=== PATIENT | female | born 1940 | race Caucasian/White ===

== ENCOUNTER 2025-05-11 13:51 | Outpatient (CLI) | payer OTHER, SELFPAY ==
--- NOTE | 2025-05-11 14:00 | CRLHL7_ITS ---
For Patients: As a result of the 21st Century Cures Act, medical imaging exams and procedure reports are released immediately into your electronic medical record. You may view this report before your referring provider. If you have questions, please contact your health care provider. INDICATION: Kidney stone TECHNIQUE: CT abdomen and pelvis without contrast. COMPARISON: None. FINDINGS: Lower chest: Bibasilar scarring. Probable tree-in-bud nodularity with surrounding ground-glass in the left anterior lower lobe, incompletely imaged Liver: Normal in size and attenuation. No suspicious masses. Gallbladder and bile ducts: No stones or inflammation. No biliary dilatation. Pancreas: Unremarkable. No mass or inflammation. Spleen: Normal in size. No masses. Adrenal glands: Normal in size. No nodules. Kidneys: Normal in size. No hydronephrosis. The ureters are difficult to fully evaluate given the lack of intravenous contrast administered and paucity of intra-abdominal fat. In the region of the left ureterovesicular junction, there is a 0.2 cm calcification (2/115). Multiple scattered punctate renal calculi, measuring up to 0.7 cm in the left lower renal pole. Large left inferior pole renal cyst measuring 5.4 cm. Left hypoattenuating lesion measuring 2.7 cm, likely a cyst GI tract: Large amount of stool throughout the colon the bowel is normal in caliber. No sign of mass or inflammation. The appendix is not well seen and may be surgically absent. Vasculature: Abdominal aorta is normal in caliber. Moderate atherosclerotic calcifications of the abdominal aorta Lymph nodes: No lymphadenopathy. Peritoneum/Abdominal Wall: Unremarkable. No sign of mass or infiltration. No free air or significant free fluid. Pelvis: Prior hysterectomy. Bones: Diffuse osteopenia. Degenerative changes of the imaged spine. Chronic appearing compression deformity of the L3 vertebral body. IMPRESSION: 1. Multiple scattered punctate renal calculi, measuring up to 0.7 cm in the left lower renal pole. No hydronephrosis. The ureters are difficult to fully evaluate given the lack of intravenous contrast and paucity of intra-abdominal fat, although there may be a 0.2 cm stone at the left ureterovesicular junction. 2. Probable tree-in-bud nodularity with surrounding ground-glass in the left anterior lower lobe, incompletely imaged. Consider dedicated chest CT to evaluate extent Please note that all CT scans at this facility use dose modulation, iterative reconstruction, and/or weight-based dosing when appropriate to reduce radiation dose to as low as reasonably achievable. Dictated by Jewell Foss MD @ 05/16/2025 11:55:21 AM (Electronically Signed)
--- NOTE | 2025-05-11 14:30 | CRLHL7_ITS ---
For Patients: As a result of the Century Cures Act, medical imaging exams and procedure reports are released immediately into your electronic medical record. You may view this report before your referring provider. If you have questions, please contact your health care provider. DXA BONE MINERAL DENSITY STUDY Current height (in): 64. Weight (lb): 108. Menopause age: 47. Ethnicity: White. 1. Have you had a previous hip or vertebral fracture? No. 2. Have you had any fractures during your adult life which did not result from significant trauma (e.g., auto accident)? Yes. 3. Did either of your parents have a hip fracture? No. 4. Do you smoke? No. 5. Have you ever taken Glucocorticoids? Yes. 6. Do you have rheumatoid arthritis? No. 7. Do you have secondary osteoporosis? No. 8. Do you drink 3 or more alcoholic drinks per day? No. 9. Are you being treated for osteoporosis? Yes. 10. Have you ever taken any of the following medications: Actonel, Evista, Fosamax, Miacalcin, Reclast, Boniva, Forteo, HRT (i.e. estrogen/hormone therapy), Protelos, Prolia, Vitamin D, Calcium, other ??? please specify. ANSWER: Yes, Fosamax, Vitamin D, HRT and Calcium. 11. Do you have any of the following medical conditions: Anorexia or bulimia, asthma or emphysema, end stage renal disease, hyperparathyroidism, any seizure disorders, cancer, inflammatory bowel diseases, hysterectomy, other ??? please specify. ANSWER: Hysterectomy. 12. What was your maximum height (inches)? 68. 13. Do you perform weight bearing exercise regularly? Yes. 14. Do you regularly consume dairy products? Yes. 15. Do you drink caffeinated beverages? No. 16. At what age did your period start? 10. 17. Are you premenopausal? No. 18. How many full term pregnancies have you had? 4. 19. Have you ever missed your period for more than 6 months in a row (not including or menopause)? No. TECHNIQUE: Bone mineral density study was performed using the Spinback. FINDINGS: The results of the study expressed as bone mineral density (BMD) are as follows: Lumbar spine L1 to L4: BMD: 0.571 g/cm2. T-score: -4.3. Z-score: -1.5. Neck Left: BMD: 0.357 g/cm2. T-score: -4.4. Z-score: -1.9. Right: BMD: 0.393 g/cm2. T-score: -4.1. Z-score: -1.6. Total Left: BMD: 0.441 g/cm2. T-score: -4.1. Z-score: -1.8. Right: BMD: 0.468 g/cm2. T-score: -3.9. Z-score: -1.5. IMPRESSION: Osteoporosis. Maddie Morales M.D. Diagnostic Radiologist [email or web address] DW/Dictated by: Maddie Morales MD @ 05/15/2025 6:54:00 AM (Electronically Signed)
== END 2025-05-11 13:52 | disposition home or self-care (01) ==
LOC: CT 13:54
PROVIDERS: PCP Family Medicine; Visit Provider Family Medicine
DX: N20.0 Calculus of kidney (principal); M81.0 Age-related osteoporosis without current pathological fracture
CPT/HCPCS: 74176; 77080

== ENCOUNTER 2025-05-20 06:25 | Day surgery (SDC) | payer OTHER, SELFPAY ==
[2025-05-20] VITALS (9 sets, daily range): BP systolic 121–172; BP diastolic 77–98; PULSE 67–79; RESP 16–17; TEMP 36.8; O2SAT 96–98; BMI 18.0
--- NOTE | 2025-05-20 06:52 | SUR.PREOP ---
SAME DAY SURGERY LOCAL INJECTION SITE VERIFICATION WAS PERFORMED BY SURGEON/PA AND PATIENT PRIOR TO LOCAL ANESTHETIC BEING INJECTED TO OPERATIVE SITE.
--- NOTE | 2025-05-20 07:09 | W.PM.H&PU ---
History & Physical Update History & Physical Update H&P Reviewed and patient assessed: No changes noted
--- NOTE | 2025-05-20 07:10 | P.ORPRC_ITS ---
Procedure Note Date of procedure: 05/20/25 Procedure: PREOPERATIVE DIAGNOSIS: 1. Right middle and ring finger trigger digits POSTOPERATIVE DIAGNOSIS: 1. Right middle and ring finger trigger digits PROCEDURES: 1. Right middle finger trigger (A1 delonte) release 1. Right ring finger trigger (A1 delonte) release SURGEON: Prasanna Zelaya MD. FIRMWARE SOFTWARE VERIFICATION ENGINEER: Melba Dejesus An educational program assistant was critical for this case to aid in patient positioning, tissue retraction, limb manipulation/positioning, and closure. ANESTHESIA: Local anesthetic IMPLANTS: None TOURNIQUET: 11 min at 225 mmHg COMPLICATIONS: None FINDINGS: Tendinosis involving flexor tendons of right middle and ring fingers. INDICATIONS: The patient is a pleasant 84-year-old female who has history of right middle and ring finger pain and triggering. Symptoms did not improve with conservative management. Patient subsequently elected to proceed with surgical intervention consisting of right middle and ring finger A1 delonte releases. Prior to surgery risks and benefits were discussed with patient all questions w ere answered informed consent was obtained. DESCRIPTION OF PROCEDURE: Patient was seen preoperatively and operative site was marked. The subcutaneous tissues overlying the right middle and ring finger A1 pulleys were injected with combination of 1% lidocaine and 0.25% bupivacaine. Patient was then brought to the operating room placed in supine position on the OR table. A tourniquet was placed on the patient's right arm and right upper extremity was prepped and draped in usual sterile fashion. A surgical time-out was performed confirming patient name, procedure, and location. The operative extremity was then elevated and exsanguinated with an Esmarch, and tourniquet was inflated to 225 mmHg. A skin incision measuring approximately 1 cm was made longitudinally over the A1 delonte of the right middle finger. Blunt dissection was used to dissect through subcutaneous tissues. The underlying flexor tendons and A1 delonte were identified and retractors were used to protect the neurovascular structures. The A1 delonte was then released using a tenotomy scissor. After complete release of the A1 delonte, the patient was asked to flex and extend their fingers, and no active triggering was noted. A skin incision measuring approximately 1 cm was then made longitudinally over the A1 delonte of the right ring finger. Blunt dissection was used to dissect through subcutaneous tissues. The underlying flexor tendons and A1 delonte were identified and retractors were used to protect the neurovascular structures. The A1 delonte was then released using a tenotomy scissor. After complete rel ease of the A1 delonte, the patient was asked to flex and extend their fingers, and no active triggering was noted. The tourniquet was then released and hemostasis was achieved with bipolar electrocautery. Total tourniquet time was 11 minutes. Wound was the irrigated with normal saline. Skin incision was closed with 4-0 nylon horizontal mattress sutures, and a sterile dressing was applied. Patient was then transferred to the recovery room in stable condition. POSTOPERATIVE PLAN: 1. Patient will be discharged to home day of surgery. 2. They were given instructions for wound care and finger range of motion exercises. 3. Return to the clinic for follow-up evaluation in 10-14 days for wound check and suture removal.
[2025-05-20] MEDS: BUPIVACAINE 0.5% 30 ML INJECTION (07:22)
[2025-05-20] MEDS: LIDOCAINE 1% MDV INJECTION (07:22)
[2025-05-20] MEDS: ETHYL CHLORIDE 1 APPLICATION 1 APPLIC TOPICAL (07:22)
--- NOTE | 2025-05-20 07:40 | SUR.OPER ---
PATIENT QUESTIONS ANSWERED SATISFACTORILY PREOPERATIVELY. PATIENT BROUGHT TO OR #3 PER WHEELCHAIR. Patient positioned supine on OR #3 bed. The perioperative team supported arms bilaterally on arm boards. Final approval of positioning by surgeon.
[2025-05-20] MEDS: BACITRACIN OINTMENT BULK TUBE 1 APPLIC TOPICAL (07:52)
== END 2025-05-20 08:32 | disposition home or self-care (01) ==
LOC: OR 06:26
PROVIDERS: PCP Family Medicine; Visit Provider Orthopaedic Surgery
PROC: (CPT 26055; principal; 2025-05-20 07:30)
DX: M65.341 Trigger finger, right ring finger (principal); M65.331 Trigger finger, right middle finger
CPT/HCPCS: 26055 ×2; 71250; J2003; J0665

== ENCOUNTER 2025-05-20 08:31 | Outpatient (CLI) | payer OTHER, SELFPAY ==
--- NOTE | 2025-05-20 09:00 | CRLHL7_ITS ---
For Patients: As a result of the Century Cures Act, medical imaging exams and procedure reports are released immediately into your electronic medical record. You may view this report before your referring provider. If you have questions, please contact your health care provider. Indication: Abnormal findings on CT abdomen Technique: Noncontrast CT chest Please note that all CT scans at this facility use dose modulation, iterative reconstruction, and/or weight-based dosing when appropriate to reduce radiation dose to as low as reasonably achievable. Comparison: CT abdomen and pelvis 05/11/2025 Findings: Biapical pleural-parenchymal scarring noted. Small nodular density in the right lung apex measures 4.7 millimeters, 315. Linear subsegmental scarring in both lower lobes. No pulmonary edema or pleural effusion. Subpleural nodule at the right lung apex measures 6.9 millimeters, . No fracture. Perifissural nodule on the right measures 3 millimeters, 35. Cardiomegaly. No adenopathy. Vascular calcifications. Impression: Bilateral areas of scarring. This includes reticular scarring at the anterior segment left lower lobe. Bilateral pulmonary nodules measuring up to 6.9 millimeters. One year follow-up chest CT could be considered. Cardiomegaly without CHF. Please note that all CT scans at this facility use dose modulation, iterative reconstruction, and/or weight-based dosing when appropriate to reduce radiation dose to as low as reasonably achievable. Dictated by Rick Gandhi MD @ 05/20/2025 11:11:05 AM (Electronically Signed)
== END 2025-05-20 08:32 | disposition home or self-care (01) ==
LOC: CT 08:31
PROVIDERS: PCP Family Medicine; Visit Provider Family Medicine
DX: R93.89 Abnormal findings on diagnostic imaging of other specified body structures (principal); R91.8 Other nonspecific abnormal finding of lung field; I51.7 Cardiomegaly
CPT/HCPCS: 71250

== ENCOUNTER 2025-09-22 14:45 | Outpatient (RCR) | payer OTHER, SELFPAY ==
--- NOTE | 2025-02-23 10:32 | OT.OPOE ---
OT Outpatient Ortho Eval OT Outpatient Ortho Eval* Start: 02/23/25 08:11 Freq: Status: Active Protocol: Document 02/23/25 08:11 SARIKA (Rec: 02/23/25 10:27 [email or web address] [id number]) E-signed By Deirdre Whitfield, OTR/L, CLT OT OP Ortho Eval Details Complexity Complexity Medium Insurance Information Insurance Information [employer] Other Insurance MCR Outpatient History/Precautions Current Condition/Medical Diagnosis Referring Provider Dr. Linus Zelaya Medical Diagnoses S42.294A Other nondisplaced fracture of upper end of right humerus, initial encounter Treatment Diagnosis M25.511 Pain in right shoulder M25.611, Stiffness in right shoulder Date of Onset patient had fall 02/05/25 Other Precautions arm sling given at Ortho apt. (02/15/25) size medium Next Ortho f/u apt: She was instructed return for follow- up evaluation in 4-6 weeks, at which time we will obtain repeat x-rays of the right shoulder. Not Scheduled Yet Other Conditions PMH includes but is not limited to: Fracture of humerus, proximal, right, closed (Acute) S42.201A - Unspecified fracture of upper end of right humerus, initial encounter for closed fracture (ICD-10) Urethral caruncle (Acute) N36.2 - Urethral caruncle (ICD -10) Gastroesophageal reflux (Acute ) K21.9 - Gastro-esophageal reflux disease without esophagitis (ICD-10) Low weight, pediatric, BMI less than 5th percentile for age (Acute) Z68.51 - Body mass index [BMI] pediatric, less than 5th percentile for age (ICD-10) Coronary artery disease (Acute ) I25.10 - Atherosclerotic heart disease of [place] coronary artery without angina pectoris (ICD-10) Osteoporosis (Acute) M81.0 - Age-related osteoporosis without current pathological fracture (ICD-10) Primary hypertension (Acute) I10 - Essential (primary) hypertension (ICD-10) 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 She is retired with 4 adult children She recently moved in with her daughter Sydney (they live in [place]). Patient no longer drives but is highly active. Patient is Indep with all self cares and IADLs Social History Employment Status Retired Other Critical Job [employer] Patient lives with daughter Sydney in [place] Ortho Subjective Subjective Subjective 84-year-old right-hand- dominant female presents for evaluation of her right upper extremity following injury that she sustained 2.5 weeks ago (DOI: 02/05/25). While patient was in [place] she sustained a ground level fall which resulted in her landing on her right side. Following the injury, she developed diffuse pain in her right upper extremity and shoulder. She was subsequently seen in an emergency department where she was told that she had fractured her humerus. She was treated with a sling which she has been wearing regularly since that time. For pain, she has been taking Tylenol and Advil on a regular basis. She states that pain is gradually improving, but she continues to experience pain in her right shoulder and forearm, rated 5/10. Pain Assessment Pain Pain Yes Pain Comments 5/10 in the R shoulder, but is sleeping okay at night. OT Objective Data Observations/Posture/Limb Appearance Objective Observations EXAMINATION: Musculoskeletal: Right shoulder upper extremity were examined. No obvious deformity. There was diffuse tenderness to palpation over the proximal humerus and also tenderness of the mid forearm. Mild tenderness of the elbow, more so on the lateral side than the medial side. No tenderness or discomfort at her R wrist. Shoulder range of motion was limited by pain. Full flexion extension of the elbow. Full wrist flexion extension and forearm supination/pronation. Skin/Wounds/Edema Comments R UE: There is no noticeable swelling in the R hand/wrist/ forearm/upper arm/shoulder Sensation Sensation Assessment Summary Comments Radial, ulnar, median, and actually motor and sensory were intact. Fingers warm well perfused. Additional Information Objective Additional Information Therapist has reviewed IMAGING from Chart: AP, Grashey, scapular Y, and axillary lateral x-rays of the right shoulder performed 2024 were reviewed. These demonstrated a subtle, nondisplaced, impacted proximal humerus fracture. Mild glenohumeral and acromioclavicular degenerative changes. AP and lateral right forearm x-rays performed 2024 were reviewed. Mild degenerative changes of the radiocarpal joint. Otherwise unremarkable. No fracture, dislocation, or other acute osseous abnormalities. Patient has subtle, minimally displaced, impacted proximal humerus fracture. X-rays reviewed with patient and her daughter in clinic today. Recommendation made for non operative management consisting of short period of immobilization followed by physical therapy and home exercise program for shoulder range of motion exercises. She was provided with a better fitting sling today and instructed on some home exercises which she may begin now. OT Problems Problems Problems Decreased Strength,Decreased Range of Motion,Pain,Lifting, Gripping,Pinching Problems Comments Difficulty with self cares/ IADLs as patient is R hand dominant and this UE is now in a sling while her fracture heals. Other Problems Writing,Opening Containers, Dressing,Fasteners Patient Potential Excellent Assessment Assessment Assessment 84-year-old right-hand- dominant female presents for evaluation of her right upper extremity following injury that she sustained 2.5 weeks ago (DOI: 02/05/25). While patient was in [place] she sustained a ground level fall which resulted in her landing on her right side. Following the injury, she developed diffuse pain in her right upper extremity and shoulder. She was subsequently seen in an emergency department where she was told that she had fractured her humerus. She was treated with a sling which she has been wearing regularly since that time. For pain, she has been taking Tylenol and Advil on a regular basis. She states that pain is gradually improving, but she continues to experience pain in her right shoulder and forearm, rated 5/10. Patient was pleasant, alert, orientated, asked great questions in session, was an active listener to information presented and showed signs of motivation/willingness to follow the presented protocol, instructions & HEP. In session today, patient was provided with a customized HEP printed with descriptions and pictures and a green foam sponge. The patient was a pleasure to work with today and anticipated to achieve all written goals in this POC. PLAN: treat pain symptoms with the use of modalities as indicated, manual therapy for progressing AROM, development of an individualized HEP, (and then upgrading program as patient progresses), patient education on the progression of treatment as well as current activity modifications /restrictions while healing. Occupational Therapy Treatment Plan - OP Potential Rehabilitation Potential Excellent Barriers Barriers to goal attainment No barriers noted Set Goals Goals Set with Patient Yes Goals Goals 1. Patient will resume the ability to dress and undress independently w/o pain in her R (dominant) UE 2. Patient will resume the ability to wash and dry dishes independently w/o pain in the R UE 3. Patient will have a jeeper operator strength equal to or greater than the L non dominant UE 4. Patient will wean from the R UE sling within 6 weeks from DOI (target date: March 19) 5. Patient will be discharged from skilled OT once she has achieved >85% of normal R shoulder AROM. Target Date 8 weeks Treatment Plan Treatment Plan Evaluation,Joint Mobilization, Manual Therapy,Therapeutic Exercise,Self Care/Home Management,Education Expected Frequency 1-2x Week Expected Duration 8-10 Weeks Home Program Home Program Home Program Initiated Home Program Specifics Access Code: [email or web address] URL: [email or web address] Date: 02/23/2025 Prepared by: Deirdre Whitfield Exercises - Seated Scapular Retraction - 1 x daily - 7 x weekly - 3 sets - 10 reps - Seated Shoulder Rolls - 1 x daily - 7 x weekly - 3 sets - 10 reps - Horizontal Shoulder Pendulum with Table Support - 1 x daily - 7 x weekly - 3 sets - 10 reps - Circular Shoulder Pendulum with Table Support - 1 x daily - 7 x weekly - 3 sets - 10 reps - Supine Shoulder Flexion AAROM with Hands Clasped - 1 x daily - 7 x weekly - 3 sets - 10 reps - Seated Cradle Shoulder Flexion and Horizontal Abduction PROM - 1 x daily - 7 x weekly - 3 sets - 10 reps - Seated Elbow Flexion and Extension AROM - 1 x daily - 7 x weekly - 3 sets - 10 reps - Seated Forearm Pronation and Supination AROM - 1 x daily - 7 x weekly - 3 sets - 10 reps - Green Sponge Squeezes - 1 x daily - 7 x weekly - 3 sets - 10 reps Certification Certification Statement I Certify That: Therapy Services Provided, Therapy Plan Established, Therapy Plan Reviewed Certification Information Clinic ID # [id number] Initial Certification Date 02/23/25 Recertification Due Date 05/24/25 Provider Signature Required Yes Provider Signature Shows Agreement With POC & Medical Necessity Physician NPI Number Write NPI# Here Physician Comment/Change Comment or Changes Physician Signature & Date Requested Please Sign/Date Here
--- NOTE | 2025-07-18 09:35 | OT.OPODN ---
OT Outpatient Ortho Daily Note OT Outpatient Ortho Daily Note* Start: 02/23/25 08:11 Freq: Status: Active Protocol: Document 07/18/25 09:28 SARIKA (Rec: 07/18/25 09:33 SARIKA [id number]) E-signed By Deirdre Whitfield OTR/L, CLT Type of Note Type of Note Type of Note Daily Note,Recert/Progress Note Visit Number [id number] Insurance Authorized 22 Visits Comments *Requesting more visits from insurance to address the R hand after surgery. Recert Note: 06/06/25 Adding Medical Dx to POC has patient has had a recent surgery for R hand trigger finger to ring and middle fingers of her dominant hand. Insurance Information Insurance [employer] Information Other Insurance MCR Outpatient History/Precautions Current Condition/Medical Diagnosis Referring Provider Dr. Linus Zelaya Medical Diagnoses S42.294A Other nondisplaced fracture of upper end of right humerus, initial encounter ADDED on 06/06/25: M65.341 - Trigger finger, right ring finger M65.331 - Trigger finger, right middle finger Treatment Diagnosis M25.511 Pain in right shoulder M25.611, Stiffness in right shoulder ADDED on 06/06/25: pain in R hand (M79.641) & Stiffness in R hand (M25.641) Date of Onset patient had fall 02/05/25 Other Precautions arm sling given at Ortho apt. (02/15/25) size medium Next Ortho f/u apt: She was instructed return for follow-up evaluation in 4-6 weeks, at which time we will obtain repeat x-rays of the right shoulder. Other Conditions PMH includes but is not limited to: Fracture of humerus, proximal, right, closed (Acute) S42.201A - Unspecified fracture of upper end of right humerus, initial encounter for closed fracture (ICD-10) Urethral caruncle (Acute) N36.2 - Urethral caruncle (ICD-10) Gastroesophageal reflux (Acute) K21.9 - Gastro-esophageal reflux disease without esophagitis (ICD-10) Low weight, pediatric, BMI less than 5th percentile for age (Acute) Z68.51 - Body mass index [BMI] pediatric, less than 5th percentile for age (ICD-10) Coronary artery disease (Acute) I25.10 - Atherosclerotic heart disease of [place] coronary artery without angina pectoris (ICD-10) Osteoporosis (Acute) M81.0 - Age-related osteoporosis without current pathological fracture (ICD-10) Primary hypertension (Acute) I10 - Essential (primary) hypertension (ICD-10) 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 Function/Mobility She is retired with 4 adult children She recently moved in with her daughter Sydney (they live in [place]). Patient no longer drives but is highly active. Patient is Indep with all self cares and IADLs Social History Employment Status Retired Other Critical Job Patient lives with daughter Sydney in [place] [facility] Subjective Subjective Subjective 07/18/25: Patient reports working on her HEP, she still has discomfort in her R shoulder, more muscle pain than shoulder joint discomfort-although this is less than it was 2 months ago. In regards to her R hand ( patient had trigger finger release surgery to the R dominant hand on 05/20/25. PROCEDURES: 1. Right middle finger trigger (A1 delonte) release 1. Right ring finger trigger (A1 delonte) release this has hypersensitivity over the areas of the incision (now scarred over and closed). Pain Assessment Pain Pain Yes Pain Comments 2/10 in the R upper trap muscles R hand where the incisions were at (now dry and closed) have a hypersensitivity (not pain but tingling sensation) OT OP Daily Ortho Note/Assessment Manual Therapy Manual Therapy 35 Minutes (minutes) Manual Therapy R shoulder/Head/Neck/Along the cervical and thoracic Comments spine Instrument-assisted soft tissue mobilization (IASTM) to treat/control edema, increase ROM for functional use and decrease pain for improved musculoskeletal function . Benefits of manual therapy & tissue mobilization includes alignment of fibroblasts and myofibroblasts, restoring gliding between layers of tissue, increase healing time & neurophysiological benefit due to rich proprioceptive input of fascia. Intent for manual therapy is to stimulate hyaluronic acid production and decrease viscosity, stimulate mechanoreceptors & restore gliding/sliding between layer. Then 5 mins spent with the hand vibration tool for the palm of the R dominant hand over and around the trigger finer scar lines. There is still localized edema here. Patient stated that this treatment felt good. There is still a decent amount of swelling over her middle and ring finger from her trigger finger surgery. I'm encouraging her to do ice cup massages to this area with gentle massage 3-4x/daily. Ultrasound Ultrasound Minutes ( 10 minutes) Ultrasound Location Ultrasound applied to the R shoulder/Neck/Along the & Joint Position medial border of cervical and thoracic spine for 10 minutes for increasing collagen tissue temp prior to stretching and manual therapy to allow for decreased joint stiffness and increased AROM in order to have less pain with functional use of the dominant R UE Ultrasound Frequency 1 MHz Continuous & Mode Intensity (w/cm2) 1.6 Total Occupational Therapy Time Occupational Therapy 45 Minutes Home Program Home Program Home Program Compliant Home Program Upgraded HEP 05/02/25. Specifics Access Code: [email or web address] URL: [email or web address] Date: 05/02/2025 Prepared by: Deirdre Whitfield Exercises - Seated Scapular Retraction - 1 x daily - 7 x weekly - 3 sets - 10 reps - Seated Shoulder Rolls - 1 x daily - 7 x weekly - 3 sets - 10 reps - Horizontal Shoulder Pendulum with Table Support - 1 x daily - 7 x weekly - 3 sets - 10 reps - Circular Shoulder Pendulum with Table Support - 1 x daily - 7 x weekly - 3 sets - 10 reps - Supine Shoulder Flexion AAROM with Hands Clasped - 1 x daily - 7 x weekly - 3 sets - 10 reps - Seated Cradle Shoulder Flexion and Horizontal Abduction PROM - 1 x daily - 7 x weekly - 3 sets - 10 reps - Forearm AAROM Supination and Pronation with Ball - 1 x daily - 7 x weekly - 3 sets - 10 reps - Wrist AAROM Flexion and Extension - 1 x daily - 7 x weekly - 3 sets - 10 reps - Standing Wand Assisted Shoulder External Rotation - 1 x daily - 7 x weekly - 3 sets - 10 reps - Seated Shoulder Flexion Towel Slide at Table Top - 1 x daily - 7 x weekly - 3 sets - 10 reps - Supine Shoulder Flexion Extension AAROM with Dowel - 1 x daily - 7 x weekly - 3 sets - 10 reps - Supine Shoulder Circles with Dowel Clockwise and Counter-Clockwise - 1 x daily - 7 x weekly - 3 sets - 10 reps - Supine Shoulder External Rotation AAROM with Dowel - 1 x daily - 7 x weekly - 3 sets - 10 reps - Seated Elbow Flexion Extension AAROM with Dowel into Wall - 1 x daily - 7 x weekly - 3 sets - 10 reps - Seated Single Finger Extension - 1 x daily - 7 x weekly - 3 sets - 10 reps - Resisted Finger Extension and Thumb Abduction - 1 x daily - 7 x weekly - 3 sets - 10 reps - Cervical Retraction at Wall - 1 x daily - 7 x weekly - 3 sets - 10 reps (New as of 05/02/25) - Standing shoulder flexion wall slides - 1 x daily - 7 x weekly - 3 sets - 10 reps (New as of 05/02/25) - Wall Push Up - 1 x daily - 7 x weekly - 3 sets - 10 reps (New as of 05/02/25) - Standing Wall Ball Circles with Mini Brazilian Ball - 1 x daily - 7 x weekly - 3 sets - 10 reps told to do this clockwise, counter clockwise and push into the wall and hold for a few seconds (New as of 05/02/25) - Scapular Retraction with Resistance - 1 x daily - 7 x weekly - 3 sets - 10 reps (New as of 05/02/25) using a red theraband - Scapular Retraction with Resistance Advanced - 1 x daily - 7 x weekly - 3 sets - 10 reps (New as of ) using a red theraband-medium resistance - Supine Scapular Protraction in Flexion with Dumbbells - 1 x daily - 7 x weekly - 3 sets - 10 reps (New as of 05/02/25) asked patient to hold a soup can (16 oz) as the diameter of the can will be larger than the dumbbell and she will not need as tight of a summer analyst/hold (in order not to aggravate the tender area over her MCP 's). ADDED 06/20/25: For the R hand PASSIVE WRIST STRETCHING FINGER TIP BENDING at the DIP while blocking the PIP -Support your finger just below the tip. Bend the tip of your finger while keeping the rest of the finger straight. Repeat hourly, do 3-5 repetitions BENDING TIP AND MIDDLE JOINT OF FINGER -Hold big knuckle straight while bending tip and middle joint of finger. (Avoid ?triggering or locking?) Repeat hourly, do 3-5 repetitions. -Single digit Finger extension -lift the effected finger and hold for a 10 second count, then switch to the other finger and hold for a 10 second count. Do 4-6 reps multiple times per day Range of Motion and Strength Shoulder Range of Motion and Strength Shoulder Range of R UE: Active forward elevation 125?, external rotation Motion and Strength 60?, internal rotation to L1. Hand Pinch/Ethics Manager Strength Hand Pinch/Ethics Manager Strength Hand Pinch/Ethics Manager Left Hand,Right Hand Strength Left Hand Ethics Manager Strength 40 Position 1 in Elbow Flexion (lbs) Lateral Pinch 7 Strength (lbs) Three Point Pinch ( 5 lbs) Right Hand Ethics Manager Strength 29 Position 1 in Elbow Flexion (lbs) Lateral Pinch 7 Strength (lbs) Three Point Pinch ( 6 lbs) Comments Comments 05/02/25: R hand summer analyst went from 25 to 29 lbs. Did not test pinch strength today has patient has pain and tenderness along the [place] side of her MCP joints. Wanted to avoid any irritation to the R hand tested on 03/09/25 (R dominant UE) summer analyst and pinch are well below the average for gender and age. OT Objective Data Hand Hand Dominance Right Observations/Posture/Limb Appearance Objective EXAMINATION: Observations Musculoskeletal: Right shoulder upper extremity were examined. No obvious deformity. There was diffuse tenderness to palpation over the proximal humerus and also tenderness of the mid forearm. Mild tenderness of the elbow, more so on the lateral side than the medial side. No tenderness or discomfort at her R wrist. Shoulder range of motion was limited by pain. Full flexion extension of the elbow. Full wrist flexion extension and forearm supination/pronation. Skin/Wounds/Edema Comments R UE: There is no noticeable swelling in the R hand/ wrist/forearm/upper arm/shoulder Sensation Sensation Assessment Radial, ulnar, median, and actually motor and sensory Summary Comments were intact. Fingers warm well perfused. Additional Information Objective Additional Updated X-ray from apt on 03/15/25-copied from chart: Information IMAGING: AP, Grashey, scapular Y, and axillary lateral x-rays of the right shoulder performed in clinic today (03/15/2025 ) were reviewed. These demonstrated a healing, minimally displaced, impacted proximal humerus fracture . Mild glenohumeral and acromioclavicular degenerative changes. No significant changes compared to x-rays obtained 02/15/2025. Therapist has reviewed IMAGING from Chart: AP, Grashey, scapular Y, and axillary lateral x-rays of the right shoulder performed 02/15/2025 were reviewed. These demonstrated a subtle, nondisplaced, impacted proximal humerus fracture. Mild glenohumeral and acromioclavicular degenerative changes. AP and lateral right forearm x-rays performed 02/15/2025 were reviewed. Mild degenerative changes of the radiocarpal joint. Otherwise unremarkable. No fracture, dislocation, or other acute osseous abnormalities. Patient has subtle, minimally displaced, impacted proximal humerus fracture. X-rays reviewed with patient and her daughter in clinic today. Recommendation made for non operative management consisting of short period of immobilization followed by physical therapy and home exercise program for shoulder range of motion exercises. She was provided with a better fitting sling today and instructed on some home exercises which she may begin now. OT Problems Problems Problems Decreased Strength,Decreased Range of Motion,Pain, Lifting,Gripping,Pinching Problems Comments Difficulty with self cares/IADLs as patient is R hand dominant and this UE is now in a sling while her fracture heals. Other Problems Writing,Opening Containers,Dressing,Fasteners Patient Potential Excellent Assessment Assessment Assessment 07/18/25: I will request ore visits from insurance to address the R [place] side of her dominant hand (recent trigger finger release surgery). Patient still reporting to me discomfort in the palm of her R hand, there is swelling still present above her MCP's on the [place] side. She is unable to use her R hand to open a door, turn a jar to open. She denies any triggering of the fingers. 07/04/25: We began trigger finger exercises at our session on 06/20/25, she has been using the handout that was provided to her and finds this to be helpful. Patient will work on on these exercises multiple times per day, followed by ice cube massage 4-6 mins to the targets around of the R palm over the MCP joints to decrease edema and pain. Patient verbalizes her understanding of these instructions. She also has a tipless edema glove that she can wear for the R dominant hand swelling present in the palm over her MCP joints of the ring and middle fingers. 06/06/25: Once provider says this Recert note, we will add treatment for the R hand trigger finger release that was done on 05/20/25 to the ring and middle digits. Occupational Therapy Treatment Plan - OP Potential Rehabilitation Excellent Potential Barriers Barriers to goal No barriers noted attainment Set Goals Goals Set with Yes Patient Goals Goals 1. Patient will resume the ability to dress and undress independently w/o pain in her R (dominant) UE. -GOAL MET 03/09/25 2. Patient will resume the ability to wash and dry dishes independently w/o pain in the R UE. -GOAL MET 3. Patient will have a summer analyst strength equal to or greater than the L non dominant UE. -progressing, continue 4. Patient will wean from the R UE sling within 6 weeks from DOI (target date: March 19). -GOAL MET 03/09/25 5. Patient will be discharged from skilled OT once she has achieved >85% of normal R shoulder AROM. - progressing, continue Target Date 8 weeks Treatment Plan Treatment Plan Evaluation,Joint Mobilization,Manual Therapy, Therapeutic Exercise,Self Care/Home Management, Education Expected Frequency 1-2x Week Expected Duration 8-10 Weeks Occupational Therapy Billing Units Treatment Minutes Timed Treatment 45 Minutes Total Treatment 45 Minutes Billing Units Manual Therapy 2 Ultrasound 1 Certification Statement Certification Statement I Certify That: Therapy Services Provided,Therapy Plan Established, Therapy Plan Reviewed Recertification Information Recertification Information Initial 02/23/25 Certification Date Recertification 07/18/25 Start Date Recertification Due 10/12/25 Date Reasons to Continue Recert Note: 06/06/25 (NEW) DOS: 05/20/25 Skilled Therapy Adding Medical Dx to POC as patient has had a recent surgery for R hand trigger finger to ring and middle fingers of her dominant hand. M65.341 - Trigger finger, right ring finger M65.331 - Trigger finger, right middle finger Once provider says this Recert note, we will add treatment for the R hand trigger finger release that was done on 05/20/25 to the ring and middle digits. Rehabilitation Excellent Potential Click To Default ' Per treatment plan Per treatment plan' Continued Plan of Per treatment plan Care and Interventions Provider Signature Yes Required Provider Signature POC & Medical Necessity Shows Agreement With Physician NPI Number Write NPI# Here Physician Comment/ Comment or Changes Change Physician Signature Please Sign/Date Here & Date Requested
== END 2025-09-22 15:53 | disposition home or self-care (01) ==
PROVIDERS: Visit Provider Orthopaedic Surgery
DX: S42.294D Other nondisplaced fracture of upper end of right humerus, subsequent encounter for fracture with routine healing (principal); M65.331 Trigger finger, right middle finger; Z51.89 Encounter for other specified aftercare
CPT/HCPCS: 97035; 97110; 97140; 97166; X5282